=== PATIENT | female | born 1980 | race African-American/Black ===

== ENCOUNTER 2023-06-10 16:05 | Emergency (ER) | payer MEDICAID ==
[~2023-06-10] VITALS: Ht 175.3 cm; Wt 68.5 kg
[2023-06-10 16:11] VITALS: BP 132/80; PULSE 100; RESP 18; TEMP 98.6
[2023-06-10] MEDS: ACETAMINOPHEN 500 MG TABLET PO ONE (16:26)
== END 2023-06-10 19:35 | disposition home or self-care (01) ==
LOC: EDUNIT# 16:05 → EMS 16:39
DX: S60.221A Contusion of right hand, initial encounter (principal); J45.909 Unspecified asthma, uncomplicated; F32.A Depression, unspecified; F41.9 Anxiety disorder, unspecified; F12.90 Cannabis use, unspecified, uncomplicated; Z87.891 Personal history of nicotine dependence; Z91.010 Allergy to peanuts; X58.XXXA Exposure to other specified factors, initial encounter; Y93.89 Activity, other specified; Y92.89 Other specified places as the place of occurrence of the external cause; Y99.8 Other external cause status
CPT/HCPCS: 99283

== ENCOUNTER 2023-07-19 23:09 | Emergency (ER) | payer MEDICAID ==
[~2023-07-19] VITALS: Ht 170.2 cm; Wt 61.4 kg
[2023-07-19 23:45] VITALS: BP 142/85; PULSE 72; RESP 16; TEMP 97.3
[2023-07-20] MEDS: MAG HYDROX/ALUMINUM HYD/SIMETH ES 30 ML SUSPENSION UDCUP PO ONE (00:28)
[2023-07-20] MEDS: FAMOTIDINE 20 MG TABLET PO ONE (00:28)
== END 2023-07-20 01:40 | disposition left against medical advice (07) ==
LOC: EMS 23:10
DX: R10.84 Generalized abdominal pain (principal); F41.9 Anxiety disorder, unspecified; J45.909 Unspecified asthma, uncomplicated; F32.A Depression, unspecified; F12.90 Cannabis use, unspecified, uncomplicated; Z87.891 Personal history of nicotine dependence; Z91.010 Allergy to peanuts
CPT/HCPCS: 99283; Z7502